=== PATIENT | male | born 1945 | race Caucasian/White ===

== ENCOUNTER → 2020-05-28 | Outpatient (CLI) | payer MEDICARE, OTHER ==
[~2020-05-28] MED LIST: REGADENOSON 0.4 MG/5 ML SYRINGE ONE
== END | disposition home or self-care (01) ==
LOC: CFH 07:21
PROVIDERS: ATTEND Internal Medicine Cardiovascular Disease
DX: R06.02 Shortness of breath (principal); I10 Essential (primary) hypertension; E78.2 Mixed hyperlipidemia; R06.09 Other forms of dyspnea
CPT/HCPCS: 78452; 93017; A9502; J2785

== ENCOUNTER 2020-09-25 13:58 | Emergency (ER) | payer MEDICARE, OTHER ==
[~2020-09-25] VITALS: Ht 182.9 cm; Wt 111.9 kg
--- NOTE | 2020-09-25 14:18 | NUR ---
PT HERE WITH C/O LEFT CHEST PAIN THAT RADIATES DOWN AND TO FLANK AREA. PT PLACED ON VITALS AND CARDIAC MONITORS.
[2020-09-25] MEDS ORDERED: ATOR10TA9 PO (14:21)
[2020-09-25] MEDS ORDERED: HYDR12.517 PO (14:21)
[2020-09-25] MEDS ORDERED: LOSA25TA25 PO (14:21)
[2020-09-25] MEDS ORDERED: MORPHINE SULFATE 4 MG/ML, 1ML IVPush PRN (15:30)
[2020-09-25] MEDS ORDERED: SODIUM CHLORIDE FLUSH 10ML SYR IVF ONE (15:30)
[2020-09-25] MEDS ORDERED: MORPHINE SULFATE 4 MG/ML, 1ML ONE (15:33)
[2020-09-25] MEDS ORDERED: ASPIRIN 81 MG TABLET CHEW ONE (15:33)
--- NOTE | 2020-09-25 15:40 | NUR ---
PT IN IMAGING.
[2020-09-25 15:50] LABS: BASOPHILS % (AUTO) 1 % (0-1); EOSINOPHILS % (AUTO) 0 % (1-7); LYMPHOCYTES % (AUTO) 19 % (22-44); MEAN CORPUSCULAR HEMOGLOBIN 28.2 pg (27.5-34.5); MEAN CORPUSCULAR HGB CONC 34.5 g/dL (33.2-36.2); MONOCYTES % (AUTO) 15 % (2-9); NEUTROPHILS % (AUTO) 64 % (42-75); PLATELET COUNT 202 x10^3/uL (130-400); RED CELL DISTRIBUTION WIDTH 13.9 % (9.4-14.8)
--- NOTE | 2020-09-25 15:51 | NUR ---
ERMD AT BEDSIDE FOR EVAL.
[2020-09-25 15:58] LABS: ALBUMIN 3.7 g/dL (3.4-5.0); ANION GAP 8 mmol/L (5-15); CALCIUM 10.1 mg/dL (8.5-10.1); CHLORIDE 104 mmol/L (98-107)
[2020-09-25] MEDS ORDERED: ASPIRIN 81 MG TABLET CHEW PO ONE (16:00)
[2020-09-25 16:03] LABS: ALANINE AMINOTRANSFERASE 33 U/L (12-78); ALKALINE PHOSPHATASE 49 U/L (45-117); CREATININE 2.36 mg/dL (0.7-1.3); TOTAL PROTEIN 7.8 g/dL (6.4-8.2); TROPONIN I < 0.015 ng/mL (0.000-0.045)
[2020-09-25 16:23] LABS: MD SCAN
[2020-09-25] MEDS ORDERED: SODIUM CHLORIDE 0.9%, 500ML IVBOLUS ONE (18:00)
[2020-09-25 18:21] LABS: MICROSCOPIC NOT IND
--- NOTE | 2020-09-25 18:23 | NUR ---
BREAK RN: PT VSRudy, NAD NOTED, DENIES NEED FOR PAIN MED AT THIS TIME. CALL LIGHT W/I REACH
[2020-09-25 19:39] VITALS: BP 138/76
== END 2020-09-25 19:56 | disposition home or self-care (01) ==
LOC: ED 16:24
DX: N13.2 Hydronephrosis with renal and ureteral calculous obstruction (principal); N28.9 Disorder of kidney and ureter, unspecified; R07.89 Other chest pain; R11.0 Nausea; I10 Essential (primary) hypertension
CPT/HCPCS: 36415; 74022; 74176; 80053; 81003; 84484; 85025; 93005; 99285; J7040